=== PATIENT | male | born 2000 | race Hispanic/Latino ===

== ENCOUNTER 2022-04-12 12:13 | Outpatient (CLI) | payer OTHER | END 2022-04-12 12:14 | disposition home or self-care (01) | LOC: CSHULT 12:13 | PROVIDERS: ATTEND Family Medicine | DX: R74.8 Abnormal levels of other serum enzymes (principal); R93.2 Abnormal findings on diagnostic imaging of liver and biliary tract | CPT/HCPCS: 76705 ==